=== PATIENT | male | born 2000 | race African-American/Black ===

== ENCOUNTER → 2022-02-01 | Outpatient (REF) | payer OTHER ==
[2022-02-01 15:14] LABS: SEMEN APPEARANCE OPAQUE (OPAQUE)
[2022-02-01 15:15] LABS: SEMEN VISCOSITY VISCOUS (LIQUID); SEMEN VOLUME 1.2 ML (2.0-5.0); SEMEN WBC >1 M/ml (<=1 M/ml); SEMEN pH 8.5 (7.0-8.0)
== END ==
LOC: M LAB REF 13:07
PROVIDERS: ATTEND Obstetrics & Gynecology
DX: N46.8 Other male infertility (principal)